=== PATIENT | female | born 1955 | race Caucasian/White ===

== ENCOUNTER → 2016-12-30 | Outpatient (CLI) | payer OTHER ==
[~2016-12-30] MED LIST: BENADRYL PO; CELEXA10 MG PO; LOMOTIL WHITE2.5 M1 PO; METOPROLOL SUCC50 MG PO; OMEPRAZOLE10 MG PO; OMEPRAZOLE40 M1 PO; OXYCODONE HCL10 MG PO; PROMETHAZINE HC25 MG PO
--- NOTE | ~2016-12-30 | CT137 ---
[facility] A Service of [facility] / [facility] RADIOLOGY TEXT RESULTS PATIENT: SHANNON MORGAN LOCATION: [facility] : 55 UNIT #: [id number] AGE: [address]: Jovita Lopez MD SEX: F ORDER DR: [id number] [facility] [address] [place], [place] [address] [id number] O MR#: [id number] #: [id number] NAME: SHANNON MORGAN : 1955 SEX: F STUDY DATE/TIME: 12/30/2016 14:56 UNIT: [facility] ROOM: STUDY DESCRIPTION: CT Lung Screening annual Attending Physician: Jovita Lopez M.D. Referring Physician: Jovita Lopez M.D. Ordering Physician: Jovita Lopez M.D. Primary Care Physician: Jovita Lopez M.D. MEDICAL IMAGING REPORT This report is preliminary unless electronic signature is present EXAM CT of the chest without contrast lung cancer screening INDICATIONS 47 pack-year total smoking history. Current smoker. TECHNIQUE CT scan of the chest was performed without contrast using a low-dose lung cancer screening protocol. Coronal and sagittal and reformatted images were obtained. CT dose index 2.[address] exam was performed with one or more of the following radiation dose reduction techniques: automatic exposure control, adjustment of mA and/or kV according to patient size, and iterative reconstruction. COMPARISON 10/15/2015 FINDINGS Mild emphysema. There is a new lobulated density in the most inferior aspect of the right middle lobe and on the sagittal view appears wedge-shaped. I suspect this is an area of atelectasis. There is no definite pulmonary nodule. There is no lymphadenopathy. There is no pleural effusion. Limited imaging of the upper abdomen shows a cholecystectomy. The bone windows are unremarkable. IMPRESSION There is no discrete pulmonary nodule. There is however somewhat lobulated wedge-shaped density in the inferior aspect of the right middle lobe which I believe is probably atelectasis but it was not present on the previous CT scan. Therefore I would recommend a short-interval followup chest CT in 3 months to document clearing of this finding. ACR Lung-RADS Category: 2S. [facility]. [facility] A Service of [facility] RADIOLOGY TEXT RESULTS PATIENT: SHANNON MORGAN LOCATION: [facility] : 55 UNIT #: [id number] AGE: [address]: Jovita Lopez MD SEX: F ORDER DR: Dictated by... Christoph Garcia M.D. THIS IS AN ELECTRONICALLY VERIFIED REPORT Christoph Garcia M.D. at 12/31/2016 10:28 AM ARS/tashia TD: 12/30/2016 17:18 JOB #: [id number] MEDICAL IMAGING REPORT Page 1 of 1 COPY
== END | disposition home or self-care (01) ==
LOC: CCAT 14:26
DX: F17.210 Nicotine dependence, cigarettes, uncomplicated (principal)
CPT/HCPCS: G0297